=== PATIENT | born 1975 ===

== ENCOUNTER → 2025-03-17 12:46 | Outpatient (REF) | payer OTHER, SELFPAY ==
--- NOTE | 2025-03-17 13:42 | OID.BR.INTR ---
[facility] Breast Navigator - Initial
- -
Date of Contact: 03/17/25
Met with patient. Patient given written information on navigator service available at [facility]. Will follow up as needed per protocol.
== END ==
LOC: WDC 12:46
DX: N63.11 Unspecified lump in the right breast, upper outer quadrant (principal); N63.10 Unspecified lump in the right breast, unspecified quadrant
CPT/HCPCS: 19083; 88305; A4648